=== PATIENT | male | born 1995 | race Caucasian/White ===

== ENCOUNTER 2019-09-01 14:40 | Emergency (ER) | payer SELFPAY ==
[~2019-09-01] VITALS: Ht 172.7 cm; Wt 75.0 kg
[2019-09-01 17:14] VITALS: BP 122/76
== END 2019-09-01 17:21 | disposition home or self-care (01) ==
LOC: EMS 14:41
DX: S33.5XXA Sprain of ligaments of lumbar spine, initial encounter (principal); S93.692A Other sprain of left foot, initial encounter; X50.9XXA Other and unspecified overexertion or strenuous movements or postures, initial encounter; Y93.89 Activity, other specified; Y92.89 Other specified places as the place of occurrence of the external cause; Y99.8 Other external cause status

== ENCOUNTER 2022-07-30 12:30 | Emergency (ER) | payer SELFPAY ==
[~2022-07-30] VITALS: Ht 172.7 cm; Wt 68.2 kg
[2022-07-30 13:30] LABS: COVID AG,FIA SOURCE NASAL SWAB
[2022-07-30 13:57] LABS: INFLUENZA TYPE B NEGATIVE FOR TYPE B (NEGATIVE)
[2022-07-30 14:04] LABS: INFLUENZA TYPE A POSITIVE FOR TYPE A (NEGATIVE)
[2022-07-30 14:22] VITALS: BP 143/73
[2022-07-30] MEDS ORDERED: IBUPROFEN 800 MG TABLET PO ONE (14:30)
[2022-07-30] MEDS ORDERED: OSEL75 PO (14:31)
== END 2022-07-30 14:37 | disposition home or self-care (01) ==
LOC: EMS 12:45
DX: J11.1 Influenza due to unidentified influenza virus with other respiratory manifestations (principal); Z20.822 Contact with and (suspected) exposure to COVID-19; R05.9 Cough, unspecified; R68.83 Chills (without fever); R52 Pain, unspecified
CPT/HCPCS: 87804; 99283